=== PATIENT | male | born 1980 | race Two or more races ===

== ENCOUNTER → 2023-03-10 10:26 | Outpatient (BNVA) | payer OTHER, SELFPAY | PROVIDERS: PCP Nurse Practitioner Primary Care; Visit Provider Nurse Practitioner Family | DX: G47.33 Obstructive sleep apnea (adult) (pediatric) (principal) | CPT/HCPCS: 99202 ==

== ENCOUNTER → 2023-05-25 09:09 | Outpatient (REF) | payer OTHER, SELFPAY | LOC: HO.SL 09:09 | PROVIDERS: PCP Nurse Practitioner Primary Care; Visit Provider Nurse Practitioner Family | DX: G47.33 Obstructive sleep apnea (adult) (pediatric) (principal) | CPT/HCPCS: 95806 ==

== ENCOUNTER → 2023-05-25 09:44 | Outpatient (BNV) | payer OTHER, SELFPAY | PROVIDERS: PCP Nurse Practitioner Primary Care; Visit Provider Internal Medicine | DX: G47.33 Obstructive sleep apnea (adult) (pediatric) (principal) | CPT/HCPCS: 95806 ==

== ENCOUNTER 2023-06-02 | Outpatient (REF) | payer OTHER, SELFPAY | END 2023-06-02 00:01 | disposition home or self-care (01) | LOC: CF | PROVIDERS: Visit Provider Nurse Practitioner Family | DX: G47.33 Obstructive sleep apnea (adult) (pediatric) (principal); Z79.899 Other long term (current) drug therapy | CPT/HCPCS: 99212 ==

== ENCOUNTER 2023-06-02 11:22 | Outpatient (AMB) | payer OTHER, SELFPAY ==
--- NOTE | 2023-06-02 11:32 | A.OFFVIS_ITS ---
Intake Vital Signs 3 06/02/23 11:33 Height 6 ft 1 in Weight 271 lb BMI 35.8 BP 128/64 Blood Pressure Location Rt brachial Position Sitting Pulse 70 Pulse Source Pulse Oximeter Pulse Oximetry (%) 100 Oxygen Delivery Method Room Air Intake Visit Reasons: sleep study results Industrial Safety And Health Manager Required: No Freight Agent: Freight Agent offered & declined Accompanied by: Spouse Allergies No Known Allergies Allergy (Verified 06/02/23 11:37) Medication List - Last Reconciled 06/02/23 by Sherry Chavez LPN amlodipine 10 mg PO DAILY hydrochlorothiazide 12.5 mg PO DAILY losartan 50 mg PO DAILY HPI sleep study results 2 HPI0 Details Rashad is a very pleasant 42 year old obese male, never smoker, with underlying obstructive sleep apnea. He had a sleep study performed in 2021 which revealed an AHI of 29. Unfortunately, he was unable to initiate therapy due to communication issues [place] and had to have a repeat sleep study. He continues to report daytime sleepiness, morning headaches as well as frequent snoring. Today he presents to review results of recent home sleep study. [facility] Social History (Updated 06/02/23 @ 11:38 by Sherry Chavez LPN) Patient Tobacco Use Status: Never used Tobacco Review of Systems Const Denies chills, Reports daytime sleepiness, Denies excessive sweating, Denies fever(s) and Denies night sweats Eyes Denies dry eyes, Denies irritation and Denies itchy eyes ENT Reports Normal hearing present, Denies nasal congestion, Denies nasal discharge, Denies post nasal drip and Denies sore throat Card Denies chest pain, Denies chest pain at rest, Denies chest pain with activity, Denies claudication, Denies leg edema, Denies dyspnea, Denies dyspnea on exertion, Denies orthopnea and Denies paroxysmal nocturnal dyspnea Resp Denies chest congestion, Denies cough, Denies excessive phlegm production, Denies pain on inspiration, Denies pain with cough, Denies dyspnea, Denies dyspnea on exertion, Denies stridor and Denies wheezing Musc Denies myalgias Neuro Reports Normal hearing present Endo Denies excessive sweating Rhett/Lymph Denies lymphadenopathy Aller/Immun Denies itchy eyes, Denies seasonal rhinorrhea and Denies wheezing Physical Exam Vital Signs: Last Vital Signs Pulse 70 06/02/23 11:33 BP 128/64 06/02/23 11:33 Pulse Ox 100 06/02/23 11:33 Oxygen Delivery Method Room Air 06/02/23 11:33 BMI result Body Mass Index 35.8 Const General: cooperative, healthy appearing, comfortable, no acute distress, well developed and alert Nutritional Appearance: obese Orientation/consciousness: patient oriented x3 Limitations: no limitations HEENT Head: Yes normal to inspection, Yes normocephalic and Yes atraumatic Ears: hearing grossly normal bilaterally and external ears normal Eyes General: appearance normal, both eyes and all related structures Eyelids: Yes eyelids normal Sclerae: sclerae normal EOM: EOMs intact bilaterally Neck Neck: Yes normal visual inspection and Yes no lymphadenopathy Lymphatic: no lymphadenopathy noted Chest Chest palpation & inspection: normal inspection of the chest Resp Effort & Inspection: normal respiratory effort, able to speak in complete sentences, no audible wheezes, no cough, no stridor, not tachypneic, no tripod positioning and no use of accessory muscles Auscultation: clear to auscultation bilaterally Cardio Jugular venous distension: no JVD Rate: regular rate Rhythm: regular rhythm Skin Other: warm, dry General skin exam: no rashes or lesions noted Neuro General: patient oriented x3 Cranial nerves: Yes Normal hearing present Cognition (Neuro): normal cognition Gait exam (Neuro): Normal gait present Extrem General: Yes normal to inspection, Yes capillary refill normal, Yes no clubbing, cyanosis or edema and Yes no pedal edema Psych Appearance: grossly normal and well kempt Speech and movement: Normal speech and movement present and Clear speech present Affect: normal affect Attitude: cooperative Thought process: Normal thought process present Thought content: Normal thought content present Insight: Good insight present (Psych) Judgement: Good judgement present (Psych) Results Reviewed Results Reviewed: Assessment & Plan Assessment & Plan (1) Obstructive sleep apnea: Code(s): G47.33 - Obstructive sleep apnea (adult) (pediatric) Plan Reviewed sleep study results with patient which revealed an AHI of 14.9. Since patient is quite symptomatic, will start CPAP therapy. Will send in prescription for APAP mode and pressure settings of 6-16 cm with close monitoring for compliance and benefits. Sleep hygiene education reviewed. He is aware if there are any issues with the mask or CPAP machine, he will call the office. Once patient has been using CPAP therapy for 2-3 months, will send for overnight oximetry. All questions were answered and patient is in agreement of plan. Will follow up in 8 weeks. Coding Level of Care Code Est Pt Level 3 (16436) Diagnoses Obstructive sleep apnea G47.33
[2023-06-02 11:33] VITALS: BP 128/64; PULSE 70; O2SAT 100; BMI 35.8
== END 2023-06-02 14:15 | disposition home or self-care (01) ==
LOC: HO.HPSW 11:22
PROVIDERS: PCP Nurse Practitioner Primary Care; Visit Provider Nurse Practitioner Family
DX: G47.33 Obstructive sleep apnea (adult) (pediatric) (principal)
CPT/HCPCS: 99212; 99213

== ENCOUNTER 2023-08-08 11:01 | Outpatient (AMB) | payer OTHER, SELFPAY ==
[2023-08-08 11:02] VITALS: BP 132/64; PULSE 72; O2SAT 99; BMI 34.8
--- NOTE | 2023-08-08 11:02 | MHC.OFFVIS ---
Intake Vital Signs 08/08/23 11:02 Height 6 ft 1 in Weight 264 lb BMI 34.8 BP 132/64 Blood Pressure Location Rt brachial Position Sitting Pulse 72 Pulse Source Pulse Oximeter Pulse Oximetry (%) 99 Oxygen Delivery Method Room Air Intake Visit Reasons: 8 week f/u Physician Chief Of Pathology: Physician Chief Of Pathology offered & declined Accompanied by: Self / Same As Patient Allergies No Known Allergies Allergy (Verified 08/08/23 11:08) Medication List - Last Reconciled 08/08/23 by Sherry Chavez LPN amlodipine 10 mg PO DAILY hydrochlorothiazide 12.5 mg PO DAILY losartan 50 mg PO DAILY HPI 8 week f/u HPI Details Rashad is a very pleasant 43 year old obese male, never smoker, with underlying obstructive sleep apnea. At the last visit, he was started on CPAP therapy, after sleep study revealed an AHI of 14.9. He was started on APAP mode with pressure settings of 6-16 cm. He is using a fullface mask. Today he presents to review use of CPAP therapy. He reports significant improvements in snoring, daytime fatigue and morning headaches after initiating therapy. He denies any respiratory symptoms at this time. [facility] Medical History (Updated 07/25/23 @ 15:13 by Radha Moses PA-C) Obstructive sleep apnea Hypertension Obesity (BMI 30-39.9) (Updated 08/08/23 @ 11:08 by Sherry hCavez LPN) Patient Tobacco Use Status: Never used Tobacco Review of Systems Const Denies chills, Denies excessive sweating, Denies fever(s), Denies night sweats and Denies snoring Eyes Denies dry eyes, Denies irritation and Denies itchy eyes ENT Reports Normal hearing present, Denies nasal congestion, Denies nasal discharge, Denies post nasal drip and Denies sore throat Card Denies chest pain, Denies chest pain at rest, Denies chest pain with activity, Denies claudication, Denies leg edema, Denies dyspnea, Denies dyspnea on exertion, Denies orthopnea and Denies paroxysmal nocturnal dyspnea Resp Denies chest congestion, Denies cough, Denies excessive phlegm production, Denies pain on inspiration, Denies pain with cough, Denies dyspnea, Denies dyspnea on exertion, Denies snoring, Denies stridor and Denies wheezing Musc Denies myalgias Neuro Reports Normal hearing present Endo Denies excessive sweating Rhett/Lymph Denies lymphadenopathy Aller/Immun Denies itchy eyes, Denies seasonal rhinorrhea and Denies wheezing Physical Exam Vital Signs: Last Vital Signs Pulse 72 08/08/23 11:02 BP 132/64 08/08/23 11:02 Pulse Ox 99 08/08/23 11:02 Oxygen Delivery Method Room Air 08/08/23 11:02 BMI result Body Mass Index 34.8 Const General: cooperative, healthy appearing, comfortable, no acute distress, well developed and alert Nutritional Appearance: obese Orientation/consciousness: patient oriented x3 Limitations: no limitations HEENT Head: Yes normal to inspection, Yes normocephalic and Yes atraumatic Ears: hearing grossly normal bilaterally and external ears normal Eyes General: appearance normal, both eyes and all related structures Eyelids: Yes eyelids normal Sclerae: sclerae normal EOM: EOMs intact bilaterally Neck Neck: Yes normal visual inspection and Yes no lymphadenopathy Lymphatic: no lymphadenopathy noted Chest Chest palpation & inspection: normal inspection of the chest Resp Effort & Inspection: normal respiratory effort, able to speak in complete sentences, no audible wheezes, no cough, no stridor, not tachypneic, no tripod positioning and no use of accessory muscles Auscultation: clear to auscultation bilaterally Cardio Jugular venous distension: no JVD Rate: regular rate Rhythm: regular rhythm Skin Other: warm, dry General skin exam: no rashes or lesions noted Neuro General: patient oriented x3 Cranial nerves: Yes Normal hearing present Cognition (Neuro): normal cognition Gait exam (Neuro): Normal gait present Extrem General: Yes normal to inspection, Yes capillary refill normal, Yes no clubbing, cyanosis or edema and Yes no pedal edema Psych Appearance: grossly normal and well kempt Speech and movement: Normal speech and movement present and Clear speech present Affect: normal affect Attitude: cooperative Thought process: Normal thought process present Thought content: Normal thought content present Insight: Good insight present (Psych) Judgement: Good judgement present (Psych) Results Reviewed Results Reviewed: Assessment & Plan Assessment & Plan (1) Obstructive sleep apnea: Code(s): G47.33 - Obstructive sleep apnea (adult) (pediatric) Plan Reviewed compliance report, and patient has been using for >4 hours per night for >70% of the time. He has had benefit since initiating CPAP therapy and plans to continue use. He is aware if he is having any issues with the machine or mask, he will call his DME company or this office. All questions were answered and patient is in agreement of plan. Will follow up in 3-4 months or sooner if needed. Coding Level of Care Code Est Pt Level 4 (50921) Diagnoses Obstructive sleep apnea G47.33
== END 2023-08-08 11:17 | disposition home or self-care (01) ==
PROVIDERS: PCP Nurse Practitioner Primary Care; Visit Provider Nurse Practitioner Family
DX: G47.33 Obstructive sleep apnea (adult) (pediatric) (principal)
CPT/HCPCS: 99214

== ENCOUNTER → 2023-08-08 11:01 | Outpatient (BNVA) | payer OTHER, SELFPAY | PROVIDERS: PCP Nurse Practitioner Primary Care; Visit Provider Nurse Practitioner Family | DX: G47.33 Obstructive sleep apnea (adult) (pediatric) (principal) | CPT/HCPCS: 99212 ==

== ENCOUNTER 2023-11-03 15:48 | Outpatient (AMB) | payer OTHER, SELFPAY ==
--- NOTE | 2023-11-03 15:53 | A.OFFVIS_ITS ---
Intake Vital Signs 11/03/23 15:54 Height 6 ft 1 in Weight 269 lb BMI 35.5 BP 128/80 Blood Pressure Location Lt brachial Position Sitting Respiration 12 Pulse 70 Pulse Source Pulse Oximeter Pulse Oximetry (%) 97 Oxygen Delivery Method Room Air Intake Visit Reasons: gary : 4 month f/u Improvement Intern Required: Yes Improvement Intern Name: [id number] Information Interpreted: non-clinical & clinical Allergies No Known Allergies Allergy (Verified 11/03/23 15:54) Medication List - Last Reconciled 11/03/23 by Andreea Encarnacion, FITNESS AND WELLNESS DIRECTOR amlodipine 10 mg PO DAILY hydrochlorothiazide 12.5 mg PO DAILY losartan 50 mg PO DAILY HPI gary : 4 month f/u HPI Details Rashad is a very pleasant 43 year old obese male, never smoker, with underlying obstructive sleep apnea. At the last visit, he was started on CPAP therapy, after sleep study revealed an AHI of 14.9. He was started on APAP mode with pressure settings of 6-16 cm. He is using a fullface mask. Today he presents for a three month follow up to review use of CPAP therapy. He reports compliance with CPAP and symptomatic improvements. He denies any respiratory symptoms at this time. [facility] Medical History (Updated 07/25/23 @ 15:13 by Radha Moses PA-C) Obstructive sleep apnea Hypertension Obesity (BMI 30-39.9) Social History (Updated 08/08/23 @ 11:08 by Sherry Chavez LPN) Patient Tobacco Use Status: Never used Tobacco Review of Systems Const Denies chills, Denies excessive sweating, Denies fever(s), Denies night sweats and Denies snoring Eyes Denies dry eyes, Denies irritation and Denies itchy eyes ENT Reports Normal hearing present, Denies nasal congestion, Denies nasal discharge, Denies post nasal drip and Denies sore throat Card Denies chest pain, Denies chest pain at rest, Denies chest pain with activity, Denies claudication, Denies leg edema, Denies dyspnea, Denies dyspnea on exertion, Denies orthopnea and Denies paroxysmal nocturnal dyspnea Resp Denies chest congestion, Denies cough, Denies excessive phlegm production, Denies pain on inspiration, Denies pain with cough, Denies dyspnea, Denies dyspnea on exertion, Denies snoring, Denies stridor and Denies wheezing Musc Denies myalgias Neuro Reports Normal hearing present Endo Denies excessive sweating Rhett/Lymph Denies lymphadenopathy Aller/Immun Denies itchy eyes, Denies seasonal rhinorrhea and Denies wheezing Physical Exam Vital Signs: Last Vital Signs Pulse 70 11/03/23 15:54 Resp 12 11/03/23 15:54 BP 128/80 11/03/23 15:54 Pulse Ox 97 11/03/23 15:54 Oxygen Delivery Method Room Air 11/03/23 15:54 BMI result Body Mass Index 35.5 Const General: cooperative, healthy appearing, comfortable, no acute distress, well developed and alert Nutritional Appearance: obese Orientation/consciousness: patient oriented x3 Limitations: no limitations HEENT Head: Yes normal to inspection, Yes normocephalic and Yes atraumatic Ears: hearing grossly normal bilaterally and external ears normal Eyes General: appearance normal, both eyes and all related structures Eyelids: Yes eyelids normal Sclerae: sclerae normal EOM: EOMs intact bilaterally Neck Neck: Yes normal visual inspection and Yes no lymphadenopathy Lymphatic: no lymphadenopathy noted Chest Chest palpation & inspection: normal inspection of the chest Resp Effort & Inspection: normal respiratory effort, able to speak in complete sentences, no audible wheezes, no cough, no stridor, not tachypneic, no tripod positioning and no use of accessory muscles Auscultation: clear to auscultation bilaterally Cardio Jugular venous distension: no JVD Rate: regular rate Rhythm: regular rhythm Skin Other: warm, dry General skin exam: no rashes or lesions noted Neuro General: patient oriented x3 Cranial nerves: Yes Normal hearing present Cognition (Neuro): normal cognition Gait exam (Neuro): Normal gait present Extrem General: Yes normal to inspection, Yes capillary refill normal, Yes no clubbing, cyanosis or edema and Yes no pedal edema Psych Appearance: grossly normal and well kempt Speech and movement: Normal speech and movement present and Clear speech present Affect: normal affect Attitude: cooperative Thought process: Normal thought process present Thought content: Normal thought content present Insight: Good insight present (Psych) Judgement: Good judgement present (Psych) Assessment & Plan Assessment & Plan (1) Obstructive sleep apnea: Code(s): G47.33 - Obstructive sleep apnea (adult) (pediatric) Plan Reviewed compliance report, and patient has been using for >4 hours per night for >70% of the time. He has had benefit since initiating CPAP therapy and plans to continue use. He is aware if he is having any issues with the machine or mask, he will call his DME company or this office. All questions were answered and patient is in agreement of plan. Will follow up in 6 months or sooner if needed. Coding Level of Care Code Est Pt Level 3 (94413) Diagnoses Obstructive sleep apnea G47.33
[2023-11-03 15:54] VITALS: BP 128/80; PULSE 70; RESP 12; O2SAT 97; BMI 35.5
== END 2023-11-03 16:04 | disposition home or self-care (01) ==
PROVIDERS: PCP Nurse Practitioner Primary Care; Visit Provider Nurse Practitioner Family
DX: G47.33 Obstructive sleep apnea (adult) (pediatric) (principal)
CPT/HCPCS: 99213

== ENCOUNTER → 2023-11-03 15:48 | Outpatient (BNVA) | payer OTHER, SELFPAY | PROVIDERS: PCP Nurse Practitioner Primary Care; Visit Provider Nurse Practitioner Family | DX: G47.33 Obstructive sleep apnea (adult) (pediatric) (principal) | CPT/HCPCS: 99212 ==